=== PATIENT | female | born 1985 | race Caucasian/White ===

== ENCOUNTER 2017-06-26 16:03 | Emergency (ER) | payer MEDICAID, OTHER ==
[~2017-06-26] VITALS: Ht 152.4 cm; Wt 60.0 kg
[~2017-06-26 16:03] MED LIST: AMOX875 PO; ANTISOL30 LEFT EAR
[2017-06-26 16:05] VITALS: BP 119/66; PULSE 87; RESP 16; TEMP 98.1; O2SAT 99
[2017-06-26] MEDS ORDERED: SODIUM CHLOR 0.9% 1000 ML INJ 1,000 ML IV SCH (16:19)
--- NOTE | 2017-06-26 16:23 | PD ---
HPI Chief Complaint: Abdominal Pain Time Seen by Provider: 16:12 Travel History International Travel<30 days: No Contact w/Intl Traveler<30days: No Traveled to known affect area: No History of Present Illness HPI 31-year-old female here for evaluation of right upper quadrant abdominal pain. The patient reports that she has had this pain for the last month, currently 10 out of 10, worsening, described as bloating, worse with movements/palpation/ after eating read she denies history of abdominal surgeries. Pain does not radiate. She denies fevers or chills. She has become nauseous and vomited last night. No diarrhea. No urinary symptoms. She has been taking Zantac and ibuprofen without relief of symptoms. [facility] Past Medical History Diminished Hearing: No Gastrointestinal Disorders: Yes (colitis) Genitourinary: Yes (frequent uti's) Immunizations Current: Yes : 5 Para: 2 Miscarriage: 3 Tubal Ligation: Yes Past Surgical History Abdominal Surgery: Yes () Section: Yes (2) Family History Family Hypercholesterolemia: Yes (FATHER) Social History Alcohol Use: Yes (OCCASIONAL) Tobacco Use: Yes (1/2 PPD) Substance Use: No Allergies-Medications (Allergen,Severity, Reaction): Coded Allergies: hydrocodone (Unverified Allergy, Intermediate, HIVES, 06/26/17) ciprofloxacin (Unverified Allergy, Mild, rash, 06/26/17) Reported Meds & Prescriptions Reported Meds & Active Scripts Active Reported Zantac (Ranitidine HCl) 150 Mg Tab 150 Mg PO DAILY Review of Systems Except as stated in HPI: all other systems reviewed are Neg Physical Exam Narrative GENERAL: Well-developed, well-nourished, mild distress secondary to pain. SKIN: Focused skin assessment warm/dry. HEAD: Atraumatic. Normocephalic. EYES: Pupils equal and round. No scleral icterus. No injection or drainage. ENT: No nasal bleeding or discharge. Mucous membranes pink and moist. NECK: Trachea midline. No JVD. CARDIOVASCULAR: Regular rate and rhythm. No murmur appreciated. RESPIRATORY: No accessory muscle use. Clear to auscultation. Breath sounds equal bilaterally. GASTROINTESTINAL: Abdomen soft, nondistended. Moderate right upper quadrant tenderness without peritoneal signs. Normal bowel sounds. No hernias. MUSCULOSKELETAL: No obvious deformities. No clubbing. No cyanosis. No edema. Mild right CVA tenderness. No left CVA tenderness. NEUROLOGICAL: Awake and alert. No obvious cranial nerve deficits. Motor grossly within normal limits. Normal speech. PSYCHIATRIC: Appropriate mood and affect; insight and judgment normal. Data Data Last Documented VS Vital Signs Date Time Temp Pulse Resp B/P (MAP) Pulse Ox O2 Delivery O2 Flow Rate FiO2 06/26/17 16:45 98 Room Air 06/26/17 16:05 98.1 87 16 119/66 (83) Orders Orders Complete Blood Count With Diff (06/26/17 16:19) Comprehensive Metabolic Panel (06/26/17 16:19) Lipase (06/26/17 16:19) Prothrombin Time / Inr (Pt) (06/26/17 16:19) Act Partial Throm Time (Ptt) (06/26/17 16:19) Urinalysis - C+S If Indicated (06/26/17 16:19) Us Abdomen Gallbladder (06/26/17 ) Iv Access Insert/Monitor (06/26/17 16:19) Ecg Monitoring (06/26/17 16:19) Oximetry (06/26/17 16:19) Ondansetron Inj (Zofran Inj) (06/26/17 16:30) Sodium Chlor 0.9% 1000 Ml Inj (Ns 1000 M (06/26/17 16:19) Sodium Chloride 0.9% Flush (Ns Flush) (06/26/17 16:30) Ed Urine Pregnancytest Poc (06/26/17 16:19) Morphine Inj (Morphine Inj) (06/26/17 16:30) Morphine Inj (Morphine Inj) (06/26/17 18:00) Labs Laboratory Tests Test 06/26/17 16:45 White Blood Count 9.3 TH/MM3 Red Blood Count 4.99 MIL/MM3 Hemoglobin 14.7 GM/DL Hematocrit 43.9 % Mean Corpuscular Volume 88.0 FL Mean Corpuscular Hemoglobin 29.5 PG Mean Corpuscular Hemoglobin Concent 33.5 % Red Cell Distribution Width 12.6 % Platelet Count 197 TH/MM3 Mean Platelet Volume 10.8 FL Neutrophils (%) (Auto) 69.1 % Lymphocytes (%) (Auto) 21.5 % Monocytes (%) (Auto) 5.5 % Eosinophils (%) (Auto) 3.2 % Basophils (%) (Auto) 0.7 % Neutrophils # (Auto) 6.4 TH/MM3 Lymphocytes # (Auto) 2.0 TH/MM3 Monocytes # (Auto) 0.5 TH/MM3 Eosinophils # (Auto) 0.3 TH/MM3 Basophils # (Auto) 0.1 TH/MM3 CBC Comment DIFF FINAL Differential Comment Prothrombin Time 10.0 SEC Prothromb Time International Ratio 1.0 RATIO Activated Partial Thromboplast Time 28.5 SEC Urine Collection Type VOIDED Urine Color YELLOW Urine Turbidity CLEAR Urine pH 6.5 Urine Specific [place] 1.016 Urine Protein NEG mg/dL Urine Glucose (UA) NEG mg/dL Urine Ketones NEG mg/dL Urine Occult Blood SMALL Urine Nitrite NEG Urine Bilirubin NEG Urine Leukocyte Esterase NEG Urine RBC 0-3 /hpf Urine WBC 0-2 /hpf Urine Squamous Epithelial Cells 0-5 /hpf Microscopic Urinalysis Comment CULT NOT INDICATED Urine Collection Time 1645 Blood Urea Nitrogen 11 MG/DL Creatinine 0.66 MG/DL Random Glucose 93 MG/DL Total Protein 7.4 GM/DL Albumin 3.7 GM/DL Calcium Level 8.6 MG/DL Alkaline Phosphatase 99 U/L Aspartate Amino Transf (AST/SGOT) 17 U/L Alanine Aminotransferase (ALT/SGPT) 23 U/L Total Bilirubin 0.2 MG/DL Sodium Level 137 MEQ/L Potassium Level 3.6 MEQ/L Chloride Level 107 MEQ/L Carbon Dioxide Level 22.9 MEQ/L Anion Gap 7 MEQ/L Estimat Glomerular Filtration Rate 104 ML/MIN Lipase 208 U/L [facility] Medical Decision Making Medical Screen Exam Complete: Yes Emergency Medical Condition: Yes Medical Record Reviewed: Yes Differential Diagnosis Cholelithiasis/biliary colic, cholecystitis, pancreatitis, pyelonephritis, nephrolithiasis, ureterolithiasis, peptic ulcer disease Narrative Course Vital signs show heart rate 87, blood pressure 119/66, pulse ox 99% on room air , oral temp of 98.1F. CBC is unremarkable. CMP is unremarkable. Lipase is 208. UA shows small occult blood, not suggestive of UTI. Right upper quadrant ultrasound: CONCLUSION: 1. Mobile gallbladder sludge with mild gallbladder wall thickening. Findings are nonspecific and likely chronic in etiology. HIDA scan maybe performed if there is continued clinical concern regarding acute cholecystitis. 2. 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 Patient and the patient's [id number] were made aware of all findings. She was given 4 mg of IV morphine as well as Zofran with slight improvement in pain. She was given another dose of 4 mg of IV morphine. Given ongoing pain, I offered to admit her for further treatment and evaluation as well as routine Gen. surgery consultation to evaluate for possible cholecystectomy. The patient prefers to be discharged home and she is from [place] and will be returning there in the next 3 days. At this point I do not believe she has acute cholecystitis. This has been an ongoing process for the last couple of months. She is afebrile. There are no peritoneal signs on exam. She will be discharged home with a prescription for pain medication and antiemetics and advised to follow-up with a primary care physician/general surgeon when she returns to [place]. She was informed on when to return to the emergency department. She verbalizes understanding and agreement with plan. Diagnosis Primary Impression: Biliary colic Additional Impression: Gallbladder sludge Referrals: Mahad Beard MD 3 days General Surgeon General Surgeon 3 days Primary Care Physician 3 days Additional Instructions: Follow-up with a primary care physician this week. Follow-up with a general surgeon this week. Return to the emergency department for worsening symptoms or any other concerns. Scripts Ondansetron Odt (Zofran Odt) 4 Mg Tab 4 MG SL Q8HR Y for Nausea/Vomiting, #30 TAB 0 Refills Prov: Bj Shaikh MD 06/26/17 Tramadol (Tramadol) 50 Mg Tab 50 MG PO Q8H Y for PAIN, #20 TAB 0 Refills Prov: Bj Shaikh MD 06/26/17 Disposition: 01 DISCHARGE HOME Condition: Stable Bj Shaikh MD Jun 26, 2017 16:23
[2017-06-26] MEDS ORDERED: ZANT150T2 PO (16:27)
[2017-06-26] MEDS ORDERED: MORPHINE SULFATE 2 MG/ML INJ IV PUSH ONE ×2 (16:30→18:00)
[2017-06-26] MEDS ORDERED: SODIUM CHLORIDE 0.9% FLUSH 10 ML FLUSH IV FLUSH PRN (16:30)
[2017-06-26] MEDS ORDERED: ONDANSETRON HCL 4 MG/2 ML VIAL IVP ONE (16:30)
[2017-06-26 16:45] VITALS: O2SAT 98
[2017-06-26 16:53] LABS: AUTOMATED NEUTROPHIL # 6.4 TH/MM3 (1.8-7.7); BASOPHIL # 0.1 TH/MM3 (0-0.2); BASOPHIL % 0.7 % (0.0-2.0); EOSINOPHIL # 0.3 TH/MM3 (0-0.4); EOSINOPHIL % 3.2 % (0.0-4.0); HEMATOCRIT 43.9 % (35.0-46.0); HEMOGLOBIN 14.7 GM/DL (11.6-15.3); LYMPH % 21.5 % (9.0-44.0); MEAN CORPUSCULAR HEMOGLOBIN 29.5 PG (27.0-34.0); MEAN CORPUSCULAR HGB CONC 33.5 % (32.0-36.0); MEAN PLATELET VOLUME 10.8 FL (7.0-11.0); MONO % 5.5 % (0.0-8.0); MONOCYTE # 0.5 TH/MM3 (0-0.9); NEUT % 69.1 % (16.0-70.0); PLATELET COUNT 197 TH/MM3 (150-450); RED BLOOD COUNT 4.99 MIL/MM3 (4.00-5.30); RED CELL DISTRIBUTION WIDTH 12.6 % (11.6-17.2); WHITE BLOOD COUNT 9.3 TH/MM3 (4.0-11.0)
[2017-06-26 16:55] LABS: BILIRUBIN, URINE NEG (NEG); BLOOD, URINE SMALL (NEG); GLUCOSE,URINE NEG (NEG); KETONE, URINE NEG (NEG); NITRITE,URINE NEG (NEG); PH, URINE 6.5 (5.0-8.5); URINE LEUKOCYTE ESTERASE NEG (NEG)
[2017-06-26 17:01] LABS: CHLORIDE 107 MEQ/L (98-107); SODIUM (NA) 137 MEQ/L (136-145)
[2017-06-26 17:04] LABS: CALCIUM 8.6 MG/DL (8.5-10.1)
[2017-06-26 17:05] LABS: ALBUMIN 3.7 GM/DL (3.4-5.0); BICARBONATE 22.9 MEQ/L (21.0-32.0); BLOOD UREA NITROGEN 11 MG/DL (7-18); GLUCOSE,RANDOM 93 MG/DL (74-106); LIPASE 208 U/L (73-393)
[2017-06-26 17:08] LABS: ALT (GPT) 23 U/L (10-53); AST (GOT) 17 U/L (15-37); CREATININE 0.66 MG/DL (0.50-1.00); GLOMERULAR FILTRATION RATE 104 ML/MIN (>89)
[2017-06-26 17:09] LABS: TOTAL BILIRUBIN ADULT 0.2 MG/DL (0.2-1.0); TOTAL PROTEIN 7.4 GM/DL (6.4-8.2)
[2017-06-26 17:11] LABS: ALKALINE PHOSPHATASE 99 U/L (45-117); RBC, URINE 0-3 /hpf (0-3); SQUAMOUS EPITHELIAL CELL URINE 0-5 /hpf (0-5); URINE COLOR YELLOW (YELLW/STRAW); WBC, URINE 0-2 /hpf (0-5)
--- NOTE | 2017-06-26 17:54 | RADRPT ---
EXAM DATE/TIME: 06/26/2017 17:16 [facility] COMPARISON: CT ABDOMEN & PELVIS W/O CONTRAST, December 13, 2012, 14:28. INDICATIONS : Right upper quadrant pain. MEDICAL HISTORY : . Colitis. SURGICAL HISTORY : Tubal ligation. section. ENCOUNTER: Initial ACUITY: 1 month PAIN SCORE: 5/10 LOCATION: Right upper quadrant MEASUREMENTS: LIVER: 15.3 cm length COMMON DUCT: 5 mm RIGHT KIDNEY: 10.7 x 5.3 x 4.2 cm FINDINGS: LIVER: Normal echotexture without focal lesion or ductal dilatation. COMMON DUCT: No intraluminal mass or stone visualized. GALLBLADDER: There is mobile sludge within the gallbladder with mildly prominent gallbladder wall measuring up to 4 mm. No significant sonographic Hartley's sign or pericholecystic fluid. PANCREAS: The visualized portions are within normal limits. RIGHT KIDNEY: Increased echogenicity in the right renal pyramids may reflect medullary nephrocalcinosis. CONCLUSION: 1. Mobile gallbladder sludge with mild gallbladder wall thickening. Findings are nonspecific and like ly chronic in etiology. HIDA scan maybe performed if there is continued clinical concern regarding ac maksim cholecystitis. 2. 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 Jean Tsai MD on June 26, 2017 at 17:47 Board Certified Radiologist. This report was verified electronically.
[2017-06-26] MEDS ORDERED: MORPHINE SULFATE 4 MG/ML INJ IV PUSH ONE (18:15)
[2017-06-26] MEDS ORDERED: ZOFR4TAB3 SL (18:15)
[2017-06-26] MEDS ORDERED: TRAM50TA PO (18:15)
[2017-06-26 18:53] VITALS: BP 100/56; PULSE 64; RESP 16; O2SAT 98
== END 2017-06-26 18:55 | disposition home or self-care (01) ==
LOC: PHED 16:03
DX: K80.50 Calculus of bile duct without cholangitis or cholecystitis without obstruction (principal); F17.200 Nicotine dependence, unspecified, uncomplicated
CPT/HCPCS: 76705; 80053; 81001; 83690; 84703; 85025; 85610; 85730; 96361; 96374; 96375; 96376; 99285; J2270; J2405; J7030